=== PATIENT | male | born 1945 | race Caucasian/White ===

== ENCOUNTER 2021-06-26 00:13 | Emergency (ER) | payer MEDICARE, OTHER ==
[2021-06-26] MEDS ORDERED: Sodium Chloride 0.9% 2.5 ML Syringe FLUSH PRN (00:16)
[2021-06-26] MEDS ORDERED: Sodium Chloride 0.9% 10 ML Syringe FLUSH PRN (00:16)
[2021-06-26] MEDS ORDERED: Iopamidol 755 MG/ML 500 ML Multipack Bottle IVPUSH ONE (00:40)
[2021-06-26 01:02] LABS: CORONAVIRUS COVID-19 NAA NEGATIVE (NEGATIVE); INFLUENZA A NAA NEGATIVE (NEGATIVE); INFLUENZA B NAA NEGATIVE (NEGATIVE); RESPIRATORY SYNCYTIAL VIR NAA NEGATIVE (NEGATIVE)
[2021-06-26] MEDS ORDERED: Ondansetron 4 MG/2 ML SDV IVPUSH ONE (01:30)
[2021-06-26] MEDS ORDERED: Morphine 4 MG/ML VIAL IVPUSH ONE (01:30)
[2021-06-26 01:49] LABS: BLOOD UREA NITROGEN,BUN 19 mg/dL (7.0-18.0); GLUCOSE RANDOM 169 mg/dL (74-106)
[2021-06-26 01:54] LABS: CHLORIDE,CL 97 mmol/L (98-107); POTASSIUM,K 3.5 mmol/L (3.5-5.1); SODIUM,NA 126 mmol/L (136-148)
[2021-06-26 02:27] VITALS: BP 92/52; PULSE 70
[2021-06-26] MEDS ORDERED: Sodium Chloride 0.9% 1,000 ML IV STA (02:27)
== END 2021-06-26 02:40 ==
LOC: MW.ED 00:13
DX: S36.00XA Unspecified injury of spleen, initial encounter (principal); I25.10 Atherosclerotic heart disease of native coronary artery without angina pectoris; E78.00 Pure hypercholesterolemia, unspecified; I10 Essential (primary) hypertension; I25.2 Old myocardial infarction; Z20.822 Contact with and (suspected) exposure to COVID-19; Z79.899 Other long term (current) drug therapy; Z79.82 Long term (current) use of aspirin; W19.XXXA Unspecified fall, initial encounter
CPT/HCPCS: 0241U; 36415; 70450; 71045; 72128; 73120; 74177; 80053; 83605; 84484; 85025; 85610; 93005; 96374; 96375; 99285; J2270; J2405; J7030; Q9967